=== PATIENT | male | born 1990 | race Caucasian/White ===

== ENCOUNTER 2016-12-13 13:19 | Emergency (ER) | payer OTHER ==
[~2016-12-13] VITALS: Ht 170.2 cm; Wt 59.0 kg
== END 2016-12-13 13:34 | disposition home or self-care (01) ==
LOC: ED 13:19
DX: Z00.8 Encounter for other general examination (principal)

== ENCOUNTER 2022-07-05 11:45 | Emergency (ER) | payer OTHER ==
[~2022-07-05] VITALS: Ht 170.2 cm; Wt 63.1 kg
--- OUTSIDE RECORDS SUMMARY | 2022-07-05 11:52 | XMS ---
PreManage Notification: MIRNA DIAMOND [employer] In[employer] Events No recent Security Events currently on file CRITERIA MET - Group Notification CARE PROVIDERS There are no care providers on record at this time. Jeff has no Care Guidelines for this patient. Jama VISIT COUNT (12 MO.) 1 JOSEE Ray TOTAL 1 NOTE: Visits indicate total known visits. ED/UCC VISIT TRACKING (12 MO.) 07/05/2022 11:46 JOSEE Willis OR TYPE: Emergency COMPLAINT: - EXTREMITY PAIN/INJURY INPATIENT VISIT TRACKING (12 MO.) No inpatient visits to display in this time frame [email or web address]
[2022-07-05] MEDS ORDERED: ADVIL200 M1 PO (12:37)
[2022-07-05] MEDS ORDERED: PREDNISONE20 MG PO (13:22)
== END 2022-07-05 13:33 | disposition home or self-care (01) ==
LOC: ED 11:45
DX: S67.21XA Crushing injury of right hand, initial encounter (principal); W23.0XXA Caught, crushed, jammed, or pinched between moving objects, initial encounter; F17.200 Nicotine dependence, unspecified, uncomplicated; Z88.0 Allergy status to penicillin
CPT/HCPCS: 73110; 99283-25